=== PATIENT | female | born 1960 | race Two or more races ===

== ENCOUNTER 2017-11-24 13:55 | Inpatient (IN) | payer MEDICAID ==
[~2017-11-24] VITALS: Ht 157.5 cm; Wt 73.0 kg
[2017-11-24 15:25] LABS: Basophils # (auto) 0 uL; Basophils % (auto) 0.6 % (0.0-2.0); Eosinophils # (auto) 0.1 uL; Hemoglobin 12.7 g/dL (12.2-16.2); Lymphocytes # (auto) 1.8 uL; Lymphocytes % (auto) 33.1 % (10.0-50.0); Mean Corpuscular Hgb Conc. 32.7 g/dL (32.0-36.0); Mean Corpuscular Volume 88.7 fL (80.0-100.0); Monocytes # (auto) 0.4 uL; Monocytes % (auto) 6.7 % (0.0-12.0); Neutrophils # (auto) 3.1 uL; Neutrophils % (auto) 57.6 % (37.0-80.0); Nucleated Red Blood Cells % 0.1 %; Platelet Count (auto) 266 10^3/uL (140-450); Red Blood Cells 4.39 10^6/uL (4.0-5.20); White Blood Cell 5.4 10^3/uL (4.4-10.8)
[2017-11-24 15:37] LABS: Albumin 3.4 g/dL (3.4-5.0); Anion Gap 7 (5-15); Blood Urea Nitrogen 20 mg/dL (7-18); Calcium 8.4 mg/dL (8.5-10.1); Carbon Dioxide 25 mmol/L (21-32); Chloride 109 mmol/L (98-107); Glucose 95 mg/dL (74-106); Magnesium 2.1 mg/dL (1.6-2.6); Potassium 3.7 mmol/L (3.5-5.1); Sodium 141 mmol/L (136-145)
[2017-11-24 15:39] LABS: Alanine Aminotransferase 28 U/L (13-56); Aspartate Aminotransferase 17 U/L (15-37); BUN/Creatinine Ratio 26.3; GFR African American 101 mL/min; GFR Non-African American 83 mL/min
[2017-11-24] MEDS ORDERED: ASPirin 81 mg TAB PO ONE (15:45)
[2017-11-24 15:51] LABS: Alkaline Phosphatase 114 U/L (45-117); Bilirubin, Total 0.2 mg/dL (0.2-1.0); Total Protein 7.6 g/dL (6.4-8.2)
[2017-11-24] MEDS ORDERED: HYDROcodone-ACET 5/325MG TAB PO PRN (16:45)
[2017-11-24] MEDS ORDERED: DOCUSATE SOD 100 MG CAP PO PRN (16:45)
[2017-11-24] MEDS ORDERED: NITROGLYCERIN 0.4 MG SL TAB SL PRN (16:45)
[2017-11-24] MEDS ORDERED: ONDANSETRON HCL 4 MG/2 ML VIAL IV PRN (16:45)
[2017-11-24] MEDS ORDERED: TEMAZEPAM 15 MG CAP PO PRN (16:45)
[2017-11-24] MEDS ORDERED: MORPHINE SULFATE 4 MG/ML SYR/VIAL IV PRN (16:45)
[2017-11-24 18:24] LABS: Urine Bacteria FEW /hpf (None Seen); Urine Blood Negative /uL (Negative); Urine Specific Gravity 1.009 (1.001-1.035); Urine WBC 3 /hpf (0 - 5)
[2017-11-24] MEDS ORDERED: LISI10TA6 PO (20:30)
[2017-11-24] MEDS: ACETAMINOPHEN 325 MG TAB PO PRN (21:03)
[2017-11-24] MEDS: ATORVASTATIN 20 MG TAB PO SCH (21:03)
[2017-11-24] MEDS: SODIUM CHLOR 0.9% PF (SALINE LOCK) 10ML VIAL/SYR IV SCH (21:07)
[2017-11-24 23:46] VITALS: BP 135/85
[2017-11-25 04:42] VITALS: BP 125/80
[2017-11-25] MEDS: SODIUM CHLOR 0.9% PF (SALINE LOCK) 10ML VIAL/SYR IV SCH ×3 (05:14→21:16)
[2017-11-25 06:27] LABS: Basophils # (auto) 0 uL; Eosinophils # (auto) 0.2 uL; Eosinophils % (auto) 3.5 % (0.0-7.0); Hematocrit 40.8 % (36.0-46.0); Hemoglobin 13.4 g/dL (12.2-16.2); Lymphocytes # (auto) 2.3 uL; Lymphocytes % (auto) 45.1 % (10.0-50.0); Mean Corpuscular Hemoglobin 29.3 pg (28.0-32.0); Mean Corpuscular Volume 88.8 fL (80.0-100.0); Monocytes # (auto) 0.4 uL; Neutrophils # (auto) 2.1 uL; Neutrophils % (auto) 42.4 % (37.0-80.0); Nucleated Red Blood Cells % 0.1 %; Platelet Count (auto) 264 10^3/uL (140-450); Red Blood Cells 4.59 10^6/uL (4.0-5.20); Red Cell Distribution Width 14.3 % (11.8-14.3)
[2017-11-25 06:56] LABS: Albumin 3.2 g/dL (3.4-5.0); Calcium 8.5 mg/dL (8.5-10.1); Potassium 3.8 mmol/L (3.5-5.1)
[2017-11-25 06:58] LABS: BUN/Creatinine Ratio 22.5
[2017-11-25 07:00] LABS: Bilirubin, Total 0.4 mg/dL (0.2-1.0); Total Protein 7.3 g/dL (6.4-8.2)
[2017-11-25 09:00] VITALS: BP 126/82
[2017-11-25] MEDS: MULTIPLE VITAMIN TAB PO SCH (10:21)
[2017-11-25] MEDS: ASPirin-EC 81 mg tab PO SCH (10:21)
[2017-11-25] MEDS: ENOXAPARIN SOD 40 MG/0.4 ML SYRINGE SC SCH (10:22)
[2017-11-25] MEDS: LISINOPRIL 10 MG TAB PO SCH (10:22)
[2017-11-25] MEDS ORDERED: cefTRIAXone 1GM/10ml IVPUSH 10 ML IV ONE (10:30)
[2017-11-25 13:00] VITALS: BP 121/67
[2017-11-25] MEDS: ACETAMINOPHEN 325 MG TAB PO PRN ×2 (13:35→18:20)
[2017-11-25 16:45] VITALS: BP 107/59
[2017-11-25] MEDS: ATORVASTATIN 20 MG TAB PO SCH (21:12)
[2017-11-25] MEDS ORDERED: IBUP200C3 PO (21:16)
[2017-11-25 22:00] VITALS: BP 104/67
[2017-11-25] MEDS ORDERED: IBUPROFEN 600 MG TAB PO ONE (22:15)
[2017-11-26 05:00] VITALS: BP 95/56
[2017-11-26] MEDS: SODIUM CHLOR 0.9% PF (SALINE LOCK) 10ML VIAL/SYR IV SCH ×3 (05:35→21:55)
[2017-11-26 08:07] LABS: Basophils # (auto) 0.1 uL; Basophils % (auto) 1.3 % (0.0-2.0); Eosinophils # (auto) 0.1 uL; Eosinophils % (auto) 2.4 % (0.0-7.0); Hemoglobin 13.9 g/dL (12.2-16.2); Lymphocytes # (auto) 1.6 uL; Lymphocytes % (auto) 35.1 % (10.0-50.0); Mean Corpuscular Hemoglobin 29.2 pg (28.0-32.0); Mean Corpuscular Hgb Conc. 33.2 g/dL (32.0-36.0); Mean Corpuscular Volume 88.1 fL (80.0-100.0); Monocytes # (auto) 0.3 uL; Monocytes % (auto) 6.4 % (0.0-12.0); Neutrophils # (auto) 2.5 uL; Neutrophils % (auto) 54.8 % (37.0-80.0); Nucleated Red Blood Cells % 0.1 %; Platelet Count (auto) 265 10^3/uL (140-450); Red Blood Cells 4.77 10^6/uL (4.0-5.20); Red Cell Distribution Width 13.8 % (11.8-14.3); White Blood Cell 4.6 10^3/uL (4.4-10.8)
[2017-11-26 08:28] LABS: BUN/Creatinine Ratio 22.1; Calcium 8.8 mg/dL (8.5-10.1)
[2017-11-26 08:55] VITALS: BP 112/74
[2017-11-26] MEDS: LISINOPRIL 10 MG TAB PO SCH (10:00)
[2017-11-26] MEDS: ENOXAPARIN SOD 40 MG/0.4 ML SYRINGE SC SCH (10:00)
[2017-11-26] MEDS: ASPirin-EC 81 mg tab PO SCH (10:11)
[2017-11-26] MEDS: cefTRIAXone 1GM/10ml IVPUSH 10 ML IV SCH (10:11)
[2017-11-26] MEDS: MULTIPLE VITAMIN TAB PO SCH (10:11)
[2017-11-26] MEDS: ACETAMINOPHEN 325 MG TAB PO PRN ×2 (10:13→14:13)
[2017-11-26 12:00] VITALS: BP 118/62
[2017-11-26 17:00] VITALS: BP 121/77
[2017-11-26 20:00] VITALS: BP 109/71
[2017-11-26 21:47] VITALS: BP 109/71
[2017-11-26] MEDS: ATORVASTATIN 20 MG TAB PO SCH (21:55)
[2017-11-27] MEDS: ACETAMINOPHEN 325 MG TAB PO PRN ×2 (00:46→09:23)
[2017-11-27 04:41] VITALS: BP 103/58
[2017-11-27] MEDS: SODIUM CHLOR 0.9% PF (SALINE LOCK) 10ML VIAL/SYR IV SCH ×2 (06:00→12:47)
[2017-11-27 06:07] LABS: Cholesterol 163 mg/dL (< 200); HDL Cholesterol 53 mg/dL (40-59); LDL Cholesterol 100 mg/dL (< 100); Triglycerides 189 mg/dL (< 150)
[2017-11-27 09:00] VITALS: BP 108/60
[2017-11-27] MEDS: ASPirin-EC 81 mg tab PO SCH (09:23)
[2017-11-27] MEDS: MULTIPLE VITAMIN TAB PO SCH (09:23)
[2017-11-27] MEDS: ENOXAPARIN SOD 40 MG/0.4 ML SYRINGE SC SCH (09:23)
[2017-11-27] MEDS: cefTRIAXone 1GM/10ml IVPUSH 10 ML IV SCH (09:23)
[2017-11-27] MEDS: LISINOPRIL 10 MG TAB PO SCH (09:24)
[2017-11-27 13:00] VITALS: BP 127/86
== END 2017-11-27 15:30 | disposition home or self-care (01) | DRG 65 ==
LOC: ER 13:55 → TELE 13:56 → TELE-WESTW 20:35
PROVIDERS: ADMIT Internal Medicine; ATTEND Internal Medicine Pulmonary Disease
DX: I63.9 Cerebral infarction, unspecified (principal); G45.0 Vertebro-basilar artery syndrome; N39.0 Urinary tract infection, site not specified; E83.51 Hypocalcemia; B95.2 Enterococcus as the cause of diseases classified elsewhere; G47.30 Sleep apnea, unspecified; R47.81 Slurred speech; R20.0 Anesthesia of skin; I12.9 Hypertensive chronic kidney disease with stage 1 through stage 4 chronic kidney disease, or unspecified chronic kidney disease; N18.2 Chronic kidney disease, stage 2 (mild); Z79.82 Long term (current) use of aspirin; Z79.899 Other long term (current) drug therapy; Z82.49 Family history of ischemic heart disease and other diseases of the circulatory system; Z90.49 Acquired absence of other specified parts of digestive tract; Z84.1 Family history of disorders of kidney and ureter
CPT/HCPCS: 36415; 70450; 70551; 80048; 80053; 80061; 81001; 83735; 84484; 85025; 87086; 87088; 87186; 93005; 93306; 93886; 96372; 96374; J0696

== ENCOUNTER 2019-05-03 20:24 | Emergency (ER) | payer BC, MEDICAID ==
[~2019-05-03] VITALS: Ht 157.5 cm; Wt 69.9 kg
[~2019-05-03 20:24] MED LIST: IBUP200C3 PO; LISI10TA6 PO
[2019-05-03 23:11] VITALS: BP 138/95
== END 2019-05-03 23:21 | disposition home or self-care (01) ==
LOC: ER 20:24
DX: J06.9 Acute upper respiratory infection, unspecified (principal); J02.9 Acute pharyngitis, unspecified; I10 Essential (primary) hypertension

== ENCOUNTER 2021-03-20 16:20 | Emergency (ER) | payer BC, MEDICAID ==
[~2021-03-20] VITALS: Ht 157.5 cm; Wt 68.0 kg
[~2021-03-20 16:20] MED LIST changes: +LISI-716 PO; -LISI10TA6 PO
[2021-03-20 16:59] LABS: Basophils # (auto) 0.1 10 ^3/uL (0-0.2); Basophils % (auto) 1.6 % (0.0-2.0); Eosinophils # (auto) 0.2 10 ^3/uL (0-0.8); Eosinophils % (auto) 3.1 % (0.0-7.0); Hematocrit 39.8 % (36.0-46.0); Hemoglobin 13.1 g/dL (12.2-16.2); Lymphocytes # (auto) 2.6 10 ^3/uL (0.4-5.4); Mean Corpuscular Hemoglobin 28.9 pg (28.0-32.0); Mean Corpuscular Hgb Conc. 33.1 g/dL (32.0-36.0); Mean Corpuscular Volume 87.4 fL (80.0-100.0); Monocytes # (auto) 0.3 10 ^3/uL (0-1.3); Neutrophils # (auto) 2.4 10 ^3/uL (1.6-8.6); Neutrophils % (auto) 43.3 % (37.0-80.0); Nucleated Red Blood Cells % 0.1 %; Red Blood Cells 4.55 10^6/uL (4.0-5.20); Red Cell Distribution Width 13.9 % (11.8-14.3); White Blood Cell 5.6 10^3/uL (4.4-10.8)
[2021-03-20] MEDS ORDERED: ASPirin 81 mg TAB PO ONE (17:00)
[2021-03-20 17:19] LABS: Albumin 3.7 g/dL (3.4-5.0); Potassium 3.7 mmol/L (3.5-5.1)
[2021-03-20 17:23] LABS: Urine Bacteria MOD /hpf (None Seen); Urine Blood Negative /uL (Negative); Urine Specific Gravity 1.009 (1.001-1.035); Urine WBC 6 /hpf (0 - 5)
[2021-03-20 17:23] LABS: BUN/Creatinine Ratio 36.9; Bilirubin, Total 0.2 mg/dL (0.2-1.0); Total Protein 7.8 g/dL (6.4-8.2)
[2021-03-20] MEDS ORDERED: PANT40TA2 PO (17:28)
[2021-03-20 17:37] VITALS: BP 157/84
== END 2021-03-20 17:40 | disposition home or self-care (01) ==
LOC: ER 16:23
DX: K29.70 Gastritis, unspecified, without bleeding (principal); R07.89 Other chest pain; I10 Essential (primary) hypertension; Z90.49 Acquired absence of other specified parts of digestive tract; Z79.1 Long term (current) use of non-steroidal anti-inflammatories (NSAID); Z79.899 Other long term (current) drug therapy
CPT/HCPCS: 36415; 80053; 81001; 84484; 85025; 93005

== ENCOUNTER 2022-09-01 14:29 | Emergency (ER) | payer MEDICAID, OTHER ==
[~2022-09-01] VITALS: Ht 157.5 cm; Wt 69.7 kg
[~2022-09-01 14:29] MED LIST changes: -LISI-716 PO; +LISI10TA34 PO; +PANT40TA2 PO
[2022-09-01 15:29] LABS: Urine Bacteria NONE SEEN /hpf (None Seen); Urine Blood TRACE /uL (Negative); Urine Specific Gravity 1.025 (1.001-1.035); Urine WBC 7 /hpf (0 - 5)
[2022-09-01 15:31] LABS: Basophils # (auto) 0.1 10 ^3/uL (0-0.2); Basophils % (auto) 0.5 % (0.0-2.0); Eosinophils # (auto) 0 10 ^3/uL (0-0.8); Eosinophils % (auto) 0.1 % (0.0-7.0); Hemoglobin 13.7 g/dL (12.2-16.2); Lymphocytes # (auto) 0.6 10 ^3/uL (0.4-5.4); Lymphocytes % (auto) 6.6 % (10.0-50.0); Mean Corpuscular Hgb Conc. 33.3 g/dL (32.0-36.0); Mean Corpuscular Volume 87.1 fL (80.0-100.0); Monocytes # (auto) 0.3 10 ^3/uL (0-1.3); Monocytes % (auto) 3.4 % (0.0-12.0); Neutrophils # (auto) 8.6 10 ^3/uL (1.6-8.6); Neutrophils % (auto) 89.4 % (37.0-80.0); Red Blood Cells 4.71 10^6/uL (4.0-5.20); Red Cell Distribution Width 13.8 % (11.8-14.3); White Blood Cell 9.7 10^3/uL (4.4-10.8)
[2022-09-01 15:43] LABS: Albumin 3.7 g/dL (3.4-5.0); Calcium 9.1 mg/dL (8.5-10.1); Potassium 3.8 mmol/L (3.5-5.1)
[2022-09-01 15:48] LABS: BUN/Creatinine Ratio 24.7 (10.0-20.0); Bilirubin, Total 0.8 mg/dL (0.2-1.0); Total Protein 7.8 g/dL (6.4-8.2)
[2022-09-01] MEDS ORDERED: ONDANSETRON ODT 4 MG TAB PO ONE (17:45)
[2022-09-01] MEDS ORDERED: DICYCLOMINE HCL (10MG/ML) 2 ML AMPULE IM ONE (17:45)
[2022-09-01] MEDS ORDERED: cefTRIAXone SOD 1,000 MG VL IM ONE (17:45)
[2022-09-01] MEDS ORDERED: ZOFR4T PO (17:47)
[2022-09-01] MEDS ORDERED: AUG875T PO (17:47)
[2022-09-01] MEDS ORDERED: DICY10CA PO (17:47)
[2022-09-01] MEDS ORDERED: LOPE7.5C PO (17:47)
[2022-09-01 18:50] VITALS: BP 146/96
== END 2022-09-01 18:54 | disposition home or self-care (01) ==
LOC: ER 14:29
DX: N39.0 Urinary tract infection, site not specified (principal); R10.33 Periumbilical pain; K52.9 Noninfective gastroenteritis and colitis, unspecified; R11.2 Nausea with vomiting, unspecified; I10 Essential (primary) hypertension; Z79.899 Other long term (current) drug therapy; Z90.49 Acquired absence of other specified parts of digestive tract
CPT/HCPCS: 36415; 74176; 80053; 81001; 83690; 85025; 93005; 96372; 99285; J0500; J0696; Q0162